=== PATIENT | female | born 1940 | race Caucasian/White ===

== ENCOUNTER 2019-03-10 14:47 | Outpatient (CLI) | payer MEDICARE ==
--- NOTE | 2019-03-10 15:32 | MMO ---
Bilateral MAMMO Bilat Screen [facility]. CLINICAL HISTORY: Patient is 78 years old and is seen for screening. The patient has no family history of breast cancer. The patient has a history of Skin cancer at age 77. VIEWS: The views performed were: bilateral craniocaudal with tomosynthesis and bilateral mediolateral oblique with tomosynthesis. MAMMOGRAM FINDINGS: There are scattered fibroglandular densities. There are no suspicious masses, calcifications or areas of architectural distortion. There are benign appearing calcifications in both breasts. There are no suspicious masses, suspicious calcifications, or new areas of architectural distortion. IMPRESSION: THERE IS NO MAMMOGRAPHIC EVIDENCE OF MALIGNANCY. A ROUTINE FOLLOW-UP MAMMOGRAM IN 1 YEAR IS RECOMMENDED. THE RESULTS OF THIS EXAM WERE SENT TO THE PATIENT. ACR BI-RADS Category 2 - Benign finding MAMMOGRAPHY NOTE: 1. A negative mammogram report should not delay a biopsy if a dominant of clinically suspicious mass is present. 2. Approximately 10% to 15% of breast cancers are not detected by mammography. 3. Adenosis and dense breasts may obscure an underlying neoplasm. Reported by: VANESSA MASSEY MD Electonically Signed: [id number]
== END 2019-03-10 14:48 | disposition home or self-care (01) ==
LOC: BICMAMMO 14:47
PROVIDERS: ATTEND Internal Medicine
DX: Z12.31 Encounter for screening mammogram for malignant neoplasm of breast (principal)
CPT/HCPCS: 77063; 77067

== ENCOUNTER 2019-08-25 15:15 | Outpatient (CLI) | payer MEDICARE ==
--- NOTE | 2019-08-25 16:32 | MRI ---
MRI lumbar spine noncontrast: HISTORY: Lumbar radiculopathy. Low back pain that radiates down the right hip and leg. Symptoms are intermitte nt, x1 year COMPARISON: None FINDINGS: Appropriate T1 marrow signal intensity of the lumbar vertebra. Lumbar spine vertebral body height is maintained. No fracture. No significant STIR hyperintensity to suggest vertebral body edema or ligamentous injury Appropriate signal intensity of the paraspinal muscles. Appropriate signal intensity visualized solid organs Conus medullaris terminates at the mid T12 level Spondylolisthesis: L4-L5: 3.6 mm of anterolisthesis. T12-L1:Adequate disc hydration. No significant central canal stenosis or significant neural foraminal narrowing L1-L2:Adequate disc hydration. No significant central canal stenosis or significant neural foraminal narrowing L2-L3:Disc desiccation without significant loss of disc space height. Broad-based disc bulge, ligamen [place] flavum thickening and facet hypertrophy result in mild central canal stenosis. Mild bilateral foraminal narrowing due to disc material L3-L4:Disc desiccation without significant loss of disc space height. Broad-based disc bulge, ligamen t flavum thickening and facet hypertrophy result in mild central canal stenosis. Mild bilateral foraminal narrowing due to disc material L4-L5:Disc desiccation without significant loss of disc space height. Broad-based disc bulge, ligamen t flavum thickening and facet hypertrophy result in moderate central canal stenosis. Narrowing of bilateral subarticular zones with partial obscuration of bilateral traversing L5 nerve roots right gr eater than left. There is a small amount of fluid in the right facet joint. There does appear to be a small synovial cyst along the posterior midline of the thecal sac measuring 0.3 cm. Mild to moderat e bilateral neural foraminal narrowing. L5-S1:Adequate disc hydration. No significant central canal stenosis. Mild facet hypertrophy. Bilater ally the neural foramina are patent. IMPRESSION: 1. Disc desiccation throughout the lumbar spine as described above. Broad-based disc bulge at L2-L3, L3-L4 without significant central canal stenosis. 2. Grade 1 anterolisthesis of L4 upon L5. 3. Moderate central canal stenosis at L4-L5. Mass effect and partial obscuration of bilateral jimena ing L5 nerve roots, right greater than left due to narrowing of bilateral subarticular zones. 4. Severe bilateral facet hypertrophy at L4-L5. There is fluid in the right facet joint.
== END 2019-08-25 15:16 | disposition home or self-care (01) ==
LOC: BICMRI 15:15
PROVIDERS: ATTEND Neurological Surgery
DX: M43.16 Spondylolisthesis, lumbar region (principal); M48.061 Spinal stenosis, lumbar region without neurogenic claudication; M51.36 Other intervertebral disc degeneration, lumbar region
CPT/HCPCS: 72148

== ENCOUNTER 2021-10-09 08:53 | Outpatient (CLI) | payer MEDICARE | END 2021-10-09 08:54 | disposition home or self-care (01) | LOC: BICMAMMO 08:53 | PROVIDERS: ATTEND Family Medicine | DX: Z12.31 Encounter for screening mammogram for malignant neoplasm of breast (principal); Z85.828 Personal history of other malignant neoplasm of skin | CPT/HCPCS: 77063; 77067 ==

== ENCOUNTER 2025-07-17 08:20 | Outpatient (CLI) | payer MEDICARE | END 2025-07-17 08:21 | disposition home or self-care (01) | LOC: SCSBT 08:20 | PROVIDERS: ATTEND Family Medicine | DX: M85.89 Other specified disorders of bone density and structure, multiple sites (principal) | CPT/HCPCS: 77080 ==